=== PATIENT | male | born 1990 | race Caucasian/White ===

== ENCOUNTER 2023-08-05 17:15 | Outpatient (REF) | payer OTHER, SELFPAY ==
[2023-08-05 19:41] LABS: Basophils Percent Auto 0.3 % (0.0-3.0); Eosinophils Percent Auto 2.6 % (0.0-7.0); Hematocrit 46.1 % (37.0-53.0); Hemoglobin* 15.4 gm/dL (13.5-17.5); Immature Granulocytes Pct Auto 0.2 %; Lymphocytes Percent Auto 19.8 % (20-44); Mean Corpuscular HGB Conc 33 gm/dL (32-36); Mean Corpuscular Hemoglobin 32 pg (26-34); Mean Corpuscular Volume 94 fL (80-100); Monocytes Percent Auto 6.9 % (0.0-11.0); Neutrophils Percent Auto 70.2 % (42.0-72.0); Platelet Count* 284 K/uL (140-440); RDW Coefficient of Variation % 12.5 % (11.5-15.5); Red Blood Count 4.89 m/uL (4.30-5.90); White Blood Count* 12.15 K/uL (4.50-11.00)
[2023-08-05 19:42] LABS: Slide Review Reflex No
[2023-08-05 19:51] LABS: Chloride* 105 mmol/L (96-114)
[2023-08-05 19:52] LABS: Albumin* 4.8 g/dL (3.3-5.0); Potassium* 3.9 mmol/L (3.6-5.1); Sodium* 141 mmol/L (135-149)
[2023-08-05 19:54] LABS: Cholesterol* 158 mg/dL (90-199); Estimated Glomerular Filt Rate 101 ml/min
[2023-08-05 19:55] LABS: Alanine Aminotransferase* 48 U/L (4-50); Alkaline Phosphatase* 66 U/L (40-150); Anion Gap 8 mEq/L (7-15); Aspartate Amino Transferase* 95 U/L (12-35); Bilirubin Total* 0.6 mg/dL (0.1-1.5); Blood Urea Nitrogen* 18 mg/dL (5-24); Carbon Dioxide* 28 mmol/L (20-32); Glucose* 91 mg/dL (60-115); Total Protein* 8.2 g/dL (6.0-8.3); Triglycerides* 164 mg/dL (40-149)
[2023-08-05 19:56] LABS: Calcium* 9.4 mg/dL (8.4-10.6); HDL Cholesterol* 48 mg/dL (>=40); LDL Cholesterol Calculated 77 mg/dL (<100)
== END 2023-08-05 17:16 | disposition home or self-care (01) ==
LOC: NPINS 17:15
PROVIDERS: PCP Family Medicine
DX: F31.81 Bipolar II disorder (principal)
CPT/HCPCS: 80053; 80061; 84443; 85025

== ENCOUNTER 2024-12-21 10:49 | Outpatient (CLI) | payer OTHER, SELFPAY ==
--- NOTE | 2025-01-09 12:25 | W.PM.SLEEP ---
Sleep Study Details Details Interpreting Provider: Mary Anne Date of Sleep Study: 12/21/24 Sleep Study Details: STUDY TYPE:? Home unattended ? BMI:? 30.9 ORDERING PROVIDER:Pete North INDICATION:? Concerned about sleep apnea ? SLEEP SUMMARY:? 334 minutes monitored RESPIRATORY SUMMARY:? AHI 88.2 Low oxygen 75 31.8% of study oxygen less than 90% Snoring 100% PERIODIC LIMB MOVEMENTS OF SLEEP:? Not recorded CARDIAC:? Range 40-117, mean 80.9 beats per minute IMPRESSION:? Severe obstructive sleep apnea with significant hypo oxygenation, bradycardia and tachycardia were also noted during the study. RECOMMENDATION: Further cardiac evaluation may be indicated For the sleep apnea treatment would be either an in-lab titration or AutoSet CPAP pressures 6-18.
== END 2024-12-21 10:50 | disposition home or self-care (01) ==
PROVIDERS: PCP Family Medicine; Visit Provider Otolaryngology
DX: G47.33 Obstructive sleep apnea (adult) (pediatric) (principal)
CPT/HCPCS: 95806